=== PATIENT | male | born 1995 ===

== ENCOUNTER 2019-06-02 14:07 | Day surgery (SDC) | payer OTHER ==
[~2019-06-02] VITALS: Ht 188 cm; Wt 73.0 kg
[2019-06-02] VITALS (9 sets, daily range): BP systolic 113–151; BP diastolic 58–94
[2019-06-02] MEDS ORDERED: IBUP-24 PO (14:43)
[2019-06-02] MEDS ORDERED: cefazolin/dext.iso 2gm/50ml 50 ML IV ONE (15:00)
[2019-06-02] MEDS ORDERED: ringers solution, lacted 1,000 ML IV SCH ×2 (15:00→18:34)
[2019-06-02] MEDS ORDERED: famotidine 20mg tablet PO ONE (15:00)
[2019-06-02 15:27] LABS: BASOPHILS % (AUTO) 0.5 % (0-1); EOSINOPHILS # (AUTO) 0.1 X10'3 (0-0.9); EOSINOPHILS % (AUTO) 1.5 % (0-6); LYMPHOCYTES # (AUTO) 2.1 X10'3 (1.1-4.8); LYMPHOCYTES % (AUTO) 37.5 % (21-51); MEAN CORPUSCULAR HEMOGLOBIN 27.1 PG (27.0-31.0); MEAN PLATELET VOLUME 9.3 FL (7.4-10.4); MONOCYTES # (AUTO) 0.3 X10'3 (0-0.9); MONOCYTES % (AUTO) 5.8 % (2-12); NEUTROPHILS % (AUTO) 54.7 % (42-75); PRE OP HEMATOCRIT 44.3 % (42.0-52.0); PRE OP HEMOGLOBIN 14.6 g/dL (14.0-17.9); PRE OP PLATELET COUNT 127 X10'3 (140-440); RED CELL DISTRIBUTION WIDTH 13.8 % (11.5-14.5)
[2019-06-02] MEDS ORDERED: BUPIVAcaine/PF 2.5mg/ml (0.25%) 10ml vial ONE (15:52)
[2019-06-02] MEDS ORDERED: ceFAZolin 1000mg inj ONE (15:52)
[2019-06-02] MEDS ORDERED: fentaNYL/PF 50MCG/1 ML 2ML syringe ONE (17:37)
[2019-06-02] MEDS ORDERED: midazolam 2 mg/2 ml injection ONE (17:37)
[2019-06-02] MEDS ORDERED: meperidine/PF 25mg/ml syringe IV PRN ×3 (18:35)
[2019-06-02] MEDS ORDERED: morphine 4 MG/ML inj SYRINge IV PRN (18:35)
[2019-06-02] MEDS ORDERED: proCHLORperazine 10 MG/2 ml inj IV PRN (18:35)
[2019-06-02] MEDS ORDERED: morphine 2 MG/ML inj. syringe IV PRN (18:35)
[2019-06-02] MEDS ORDERED: ondansetron/PF 4mg/2ml inj IV PRN (18:35)
[2019-06-02] MEDS ORDERED: dexamethasone sod phosphate 4mg/ml inj. ONE (18:59)
[2019-06-02] MEDS ORDERED: propofol inj 20 ML IV ONE (18:59)
--- NOTE | 2019-06-02 19:20 | NUR ---
Received from OR via , accompanied by Anesthesiologist DR WHATLEY and report given by Anesthesiolgist. PATIENT WAKING UP, DENIES PAIN, V/S WNL, CSM INTACT, 20G LUE , SCD ON, SPLINT DRESSING TO RIGHT WRIST CDI. 2 GUARDS IN ROOM
--- NOTE | 2019-06-02 19:29 | NUR ---
Received from OR via , accompanied by Anesthesiologist DR WHATLEY and report given by Anesthesiolgist. PATIENT WAKING UP, DENIES PAIN, V/S WNL, CSM INTACT, 20G LUFrederick , SCD ON, SPLINT DRESSING TO RIGHT WRIST CDI. 2 GUARDS IN ROOM Addendum: 06/02/19 at 1931 by José Álvarez RN WRONG TIME
--- NOTE | 2019-06-02 20:30 | NUR ---
PATIENT [id number]&OX4, DENIES PAIN, V/S WNL, CSM INTACT, 20G LUE D/C , SCD OFF, SPLINT DRESSING TO RIGHT WRIST CDI. 2 GUARDS IN ROOM. I HAVE REVIEWED D/C INSTRUCTIONS WITH PATIENT AND GUARDS AND THEY HAVE VERBALIZED UNDERSTANDING. PATIENT D/C TO RETIREMENT WITH ALL BELONGINGS AND GUARDS GAVE TRANSPORT HOME.
== END 2019-06-02 20:30 ==
LOC: PAS 14:07 → EEVIPCON 16:15 → PAS 20:30
PROVIDERS: ATTEND Orthopaedic Surgery
DX: S62.306A Unspecified fracture of fifth metacarpal bone, right hand, initial encounter for closed fracture (principal); J45.909 Unspecified asthma, uncomplicated; Z79.899 Other long term (current) drug therapy; X58.XXXA Exposure to other specified factors, initial encounter; Y93.89 Activity, other specified; Y92.89 Other specified places as the place of occurrence of the external cause; Y99.8 Other external cause status
CPT/HCPCS: 26615; 36415; 82948; 85025; C1713; J0690; J1100; J2175; J2250; J2704; J3010; J3490; A4215; A4618; A6449; A7000; J7120